=== PATIENT | male | born 1935 | race Caucasian/White ===

== ENCOUNTER → 2016-09-20 | Outpatient (CLI) | payer OTHER ==
[~2016-09-20] MED LIST: ADVAIR 250/501 DISK IH; AMLODIPINE BESYL5 MG PO; ASPIRIN81 M2 PO; Advair 250/50 Diskus IH; Amlodipine Besylate PO; Aspirin PO; B6; DAILY VALUE1 EACH PO; FLONASE16 G1 BOTH NARES; GABAPENTIN800 MG PO; GRALISE300 MG PO; HYDROCODON-ACE1 EAC7 PO; IRON PO; IRON325 MG PO; KENALOG NS; KENALOG TP; MECLIZINE HCL25 MG PO; MULTIVITAMIN; MULTIVITAMIN1 EAC2 PO; NORVASC5 MG PO; PANTOPRAZOLE SO40 MG PO; PLAVIX75 MG PO; PROAIR HFA8.5 GM IH; PROTONIX40 MG PO; SIMVASTATIN40 MG PO; SINGULAIR10 MG PO; ST. JOSEPH ASPI81 MG PO; Simvastatin PO; TRAMADOL HCL50 MG PO; ULTRAM50 MG PO; VITAMIN B-6100 MG PO; VITAMIN D31000 UNI2 PO; ZOCOR20 MG PO; ZOCOR40 MG PO
== END | disposition home or self-care (01) ==
DX: R26.2 Difficulty in walking, not elsewhere classified (principal); M17.11 Unilateral primary osteoarthritis, right knee; M25.561 Pain in right knee; M25.661 Stiffness of right knee, not elsewhere classified; M62.81 Muscle weakness (generalized)
CPT/HCPCS: 97110 GP; 97150 GO; 97161 GP; 97165 GO; G8978 GP; G8979 GP; G8980 GP; G8990 GO; G8991 GO; G8992 GO

== ENCOUNTER 2016-10-25 09:29 | Inpatient (IN) | payer OTHER ==
[~2016-10-25] VITALS: Ht 177.8 cm; Wt 96.5 kg
[~2016-10-25 09:29] MED LIST changes: +IRON325 M1 PO
[2016-10-25 11:34] VITALS: BP 123/76
[2016-10-25 16:48] LABS: MCH 33.5 PG (29.0-34.0); MCHC 32.3 G/DL (30.0-36.0); MCV 103.9 FL (86-99); MEAN PLAT.VOLUME 9.3 uM^3 (9.0-12.4); PLATELET COUNT 157 K/uL (156-360); RBC DIS.WIDTH-CV 13.2 % (11.8-14.6); RBC DIS.WIDTH-SD 50.5 % (39-53); RED BLOOD COUNT 3.85 M/uL (4.00-5.50)
[2016-10-25 17:03] LABS: WHITE BLOOD COUNT 6.6 K/uL (4.1-10.2)
[2016-10-25 17:35] VITALS: BP 148/95
[2016-10-25 20:30] VITALS: BP 172/89
[2016-10-26 00:12] VITALS: BP 132/67
[2016-10-26 03:44] VITALS: BP 141/74
[2016-10-26 05:52] LABS: HEMATOCRIT 37.5 % (38.0-50.0); MCV 103.6 FL (86-99)
[2016-10-26 06:19] LABS: ANION GAP 5 MEQ/L (2-14); CHLORIDE 105 MEQ/L (99-109); GFR ESTIMATE (CALCULATED) > 59 mL/min/; GLUCOSE 128 mg/dL (70-99); POTASSIUM 4.3 MEQ/L (3.7-5.4); SAMPLE HEMOLYSIS CHECK 0; SAMPLE ICTERIC CHECK 0; SAMPLE LIPEMIA CHECK 0; SODIUM 137 MEQ/L (136-147); UREA NITROGEN (BUN) 16 mg/dL (9-23)
[2016-10-26 08:00] VITALS: BP 151/66
[2016-10-26 11:53] VITALS: BP 120/92
[2016-10-26 15:54] VITALS: BP 152/100
[2016-10-26 20:14] VITALS: BP 159/74
[2016-10-27] VITALS (7 sets, daily range): BP systolic 124–157; BP diastolic 61–84
[2016-10-27 06:26] LABS: HEMATOCRIT 34.8 % (38.0-50.0); MCV 104.5 FL (86-99)
[2016-10-28] MEDS ORDERED: OXYCONTIN10 MG PO (07:38)
[2016-10-28] MEDS ORDERED: LOVENOX40 MG/0.4 SC (07:38)
[2016-10-28] MEDS ORDERED: ENDOCET 5-3251 EACH PO (07:38)
[2016-10-28] MEDS ORDERED: CELECOXIB200 MG PO (07:38)
[2016-10-28 08:00] VITALS: BP 123/59
[2016-10-28] MEDS ORDERED: COLACE100 MG PO (16:23)
[2016-10-28] MEDS ORDERED: SENOKOT S,PE1 TABLET PO (16:23)
== END 2016-10-28 15:07 | DRG 470 ==
LOC: 2SOUTH 09:29 → 3WEST 10:48 → 2SOUTH 10:48 → 3WEST 17:08 → 3EAST 10-27 18:14
PROVIDERS: Orthopaedic Surgery
PROC: 0SRC0J9 Replacement of Right Knee Joint with Synthetic Substitute, Cemented, Open Approach (ICD-10-PCS; principal; 2016-10-25)
DX: M17.11 Unilateral primary osteoarthritis, right knee (principal); I10 Essential (primary) hypertension; J45.909 Unspecified asthma, uncomplicated; E78.00 Pure hypercholesterolemia, unspecified; I65.29 Occlusion and stenosis of unspecified carotid artery; I45.0 Right fascicular block; E78.2 Mixed hyperlipidemia; K21.9 Gastro-esophageal reflux disease without esophagitis; K64.8 Other hemorrhoids; K59.00 Constipation, unspecified; Z87.442 Personal history of urinary calculi; Z86.73 Personal history of transient ischemic attack (TIA), and cerebral infarction without residual deficits
CPT/HCPCS: 73560; 80048; 85014; 85018; 85027; 94640; 94640 76; 94799; 99202; C1713; J0131; J0690; J1100; J1170; J1650; J2175; J2405; J3010; J3370; J7050

== ENCOUNTER 2016-10-28 12:11 | Inpatient (IN) | payer OTHER ==
[~2016-10-28 12:11] MED LIST changes: +CELECOXIB200 MG PO; +ENDOCET 5-3251 EACH PO; +LOVENOX40 MG/0.4 SC; +OXYCONTIN10 MG PO
[2016-10-28 15:40] VITALS: BP 154/72
[2016-10-28] MEDS ORDERED: COLACE100 MG PO (16:23)
[2016-10-28] MEDS ORDERED: SENOKOT S,PE1 TABLET PO (16:23)
[2016-10-28 18:29] LABS: HEMATOCRIT 34.7 % (38.0-50.0); MCH 34.1 PG (29.0-34.0); MCHC 32.9 G/DL (30.0-36.0); MCV 103.9 FL (86-99); MEAN PLAT.VOLUME 9.6 uM^3 (9.0-12.4); PLATELET COUNT 142 K/uL (156-360); RBC DIS.WIDTH-CV 13.5 % (11.8-14.6); RBC DIS.WIDTH-SD 51.9 % (39-53); RED BLOOD COUNT 3.34 M/uL (4.00-5.50); WHITE BLOOD COUNT 7.8 K/uL (4.1-10.2)
[2016-10-28 20:50] LABS: ALKALINE PHOSPHATASE 85 IU/L (3-129); ANION GAP 7 MEQ/L (2-14); CHLORIDE 102 MEQ/L (99-109); GFR ESTIMATE (CALCULATED) > 59 mL/min/; POTASSIUM 4.1 MEQ/L (3.7-5.4); SAMPLE HEMOLYSIS CHECK 0; SAMPLE ICTERIC CHECK 0; SAMPLE LIPEMIA CHECK 0; SODIUM 139 MEQ/L (136-147); UREA NITROGEN (BUN) 13 mg/dL (9-23)
[2016-10-28 20:51] LABS: GLUCOSE 92 mg/dL (70-99)
[2016-10-29 05:47] VITALS: BP 132/75
[2016-10-29 13:10] VITALS: BP 148/70
[2016-10-29 15:04] VITALS: BP 126/68
[2016-10-30 06:08] VITALS: BP 136/71
[2016-10-30 15:31] VITALS: BP 142/68
[2016-10-31 05:32] VITALS: BP 120/75
[2016-10-31 15:51] VITALS: BP 127/60
[2016-10-31 15:57] LABS: HEMATOCRIT 32.9 % (38.0-50.0); MCH 34.1 PG (29.0-34.0); MCHC 32.8 G/DL (30.0-36.0); MCV 103.8 FL (86-99); PLATELET COUNT 181 K/uL (156-360); RBC DIS.WIDTH-CV 13.4 % (11.8-14.6); RED BLOOD COUNT 3.17 M/uL (4.00-5.50); WHITE BLOOD COUNT 6.1 K/uL (4.1-10.2)
[2016-10-31 16:49] LABS: ERTH.SED.RATE 76 MM/HR (0-20)
[2016-11-01 05:34] VITALS: BP 164/76
[2016-11-01 08:54] LABS: HEMATOCRIT 36.4 % (38.0-50.0); MCH 34.8 PG (29.0-34.0); MCV 105.5 FL (86-99); MEAN PLAT.VOLUME 9.1 uM^3 (9.0-12.4); PLATELET COUNT 207 K/uL (156-360); RBC DIS.WIDTH-CV 13.6 % (11.8-14.6); RBC DIS.WIDTH-SD 52.7 % (39-53); RED BLOOD COUNT 3.45 M/uL (4.00-5.50); WHITE BLOOD COUNT 7.2 K/uL (4.1-10.2)
[2016-11-01 09:40] LABS: ERTH.SED.RATE 64 MM/HR (0-20)
[2016-11-01 16:32] VITALS: BP 128/60
[2016-11-02 05:40] VITALS: BP 148/71
[2016-11-02 16:51] LABS: POINT-OF-CARE METER ID UU14174215
[2016-11-02 17:24] VITALS: BP 149/67
[2016-11-03 04:53] VITALS: BP 118/71
== END 2016-11-03 13:31 | DRG 560 ==
LOC: 3WEST 12:11
PROVIDERS: Orthopaedic Surgery Sports Medicine; Physical Medicine & Rehabilitation Pain Medicine; Psychiatry & Neurology Neurology
PROC: F07M0ZZ Range of Motion and Joint Mobility Treatment of Musculoskeletal System - Whole Body (ICD-10-PCS; principal; 2016-10-28)
DX: Z47.1 Aftercare following joint replacement surgery (principal); Z96.651 Presence of right artificial knee joint; R26.2 Difficulty in walking, not elsewhere classified; Z74.09 Other reduced mobility; D62 Acute posthemorrhagic anemia; G47.30 Sleep apnea, unspecified; R53.83 Other fatigue; T40.2X5A Adverse effect of other opioids, initial encounter; I10 Essential (primary) hypertension; E78.00 Pure hypercholesterolemia, unspecified; J44.9 Chronic obstructive pulmonary disease, unspecified; J45.909 Unspecified asthma, uncomplicated; Z86.73 Personal history of transient ischemic attack (TIA), and cerebral infarction without residual deficits
CPT/HCPCS: 70450; 73560; 80053; 82948; 85027; 85651; 86140; 94640 76; 97110 GO; 97530 GP; 99202; J1650

== ENCOUNTER 2018-01-01 09:29 | Day surgery (SDC) | payer OTHER ==
[~2018-01-01] VITALS: Ht 177.8 cm; Wt 92.1 kg
[~2018-01-01 09:29] MED LIST changes: +COLACE100 MG PO; +GORDO-VITE E120 GM TP; +LO-DOSE ASPIRIN81 M1 PO; +SENOKOT S,PE1 TABLET PO
== END 2018-01-01 12:10 | disposition home or self-care (01) ==
LOC: PAIN 09:29 → SDC 10:30 → PAIN 12:10
DX: M47.816 Spondylosis without myelopathy or radiculopathy, lumbar region (principal); M41.9 Scoliosis, unspecified; M43.06 Spondylolysis, lumbar region; M99.83 Other biomechanical lesions of lumbar region; K21.9 Gastro-esophageal reflux disease without esophagitis; J45.909 Unspecified asthma, uncomplicated; Z79.82 Long term (current) use of aspirin; Z88.8 Allergy status to other drugs, medicaments and biological substances
CPT/HCPCS: J1030; S0020

== ENCOUNTER 2018-01-08 10:12 | Day surgery (SDC) | payer OTHER ==
[~2018-01-08] VITALS: Ht 177.8 cm; Wt 92.1 kg
== END 2018-01-08 11:45 | disposition home or self-care (01) ==
LOC: PAIN 10:12 → SDC 10:30 → PAIN 10:30
PROC: 3E0T3BZ Introduction of Anesthetic Agent into Peripheral Nerves and Plexi, Percutaneous Approach (ICD-10-PCS; principal; 2018-01-08)
PROC: BR161ZZ Fluoroscopy of Lumbar Facet Joint(s) using Low Osmolar Contrast (ICD-10-PCS; principal; 2018-01-08)
PROC: 3E0T33Z Introduction of Anti-inflammatory into Peripheral Nerves and Plexi, Percutaneous Approach (ICD-10-PCS; principal; 2018-01-08)
DX: M47.816 Spondylosis without myelopathy or radiculopathy, lumbar region (principal); M51.16 Intervertebral disc disorders with radiculopathy, lumbar region; M48.061 Spinal stenosis, lumbar region without neurogenic claudication; K21.9 Gastro-esophageal reflux disease without esophagitis; J45.909 Unspecified asthma, uncomplicated; I10 Essential (primary) hypertension; E78.00 Pure hypercholesterolemia, unspecified; Z79.82 Long term (current) use of aspirin; Z88.8 Allergy status to other drugs, medicaments and biological substances
CPT/HCPCS: J1030; S0020

== ENCOUNTER 2018-01-30 08:46 | Day surgery (SDC) | payer OTHER ==
[~2018-01-30] VITALS: Ht 177.8 cm; Wt 92.1 kg
== END 2018-01-30 10:40 | disposition home or self-care (01) ==
LOC: PAIN 08:46 → SDC 10:15 → PAIN 10:40
DX: M47.816 Spondylosis without myelopathy or radiculopathy, lumbar region (principal); M99.83 Other biomechanical lesions of lumbar region; Z86.73 Personal history of transient ischemic attack (TIA), and cerebral infarction without residual deficits; Z96.651 Presence of right artificial knee joint; Z79.82 Long term (current) use of aspirin; Z88.8 Allergy status to other drugs, medicaments and biological substances
CPT/HCPCS: J1030; S0020